=== PATIENT | male | born 1995 | race Caucasian/White ===

== ENCOUNTER 2020-12-17 14:19 | Observation (INO) | payer OTHER, SELFPAY ==
[2020-12-17] VITALS (13 sets, daily range): BP systolic 129–149; BP diastolic 61–91; PULSE 63–109; RESP 16–20; TEMP 36.4–37.7; O2SAT 93–99; BMI 30.1
[2020-12-17 14:42] LABS: Absolute Lymphocyte Count 0.78 X10^3/uL (0.83-4.51); Absolute Neutrophil Count 10.8 X10^3/uL (2.0-7.7); Basophil# 0.02 X10^3/uL; Basophil% 0.2 % (0-1); Hematocrit 50.1 % (40-54); Hemoglobin 17.6 g/dL (13.0-16.5); Lymphocyte # 0.78 X10^3/ul (0.83-4.51); Lymphocyte % 6.3 % (19-41); Mean Corp Hgb Conc 35.1 g/dL (32-36); Mean Corpuscular Hgb 28.1 pg (27.0-32.0); Mean Platelet Vol. 10.6 fl (6.2-12.0); Monocyte# 0.83 X10^3/uL; Monocyte% 6.7 % (0-10); NRBC Flagged by Analyzer 0 % (0-5); Neutrophil # 10.79 X10^3/uL (2.7-7.7); Neutrophil % 86.5 % (47-70); Platelet Count 156 K/mm3 (150-450); RBC Distribution Width CV 12.1 % (11.6-14.6); RBC Distribution Width SD 34.8 fl (35.1-43.9); Red Blood Count 6.26 M/mm3 (4.6-6.2); White Blood Count 12.5 K/mm3 (4.4-11.0)
--- NOTE | 2020-12-17 15:06 | ED.VIS.GI ---
HPI HPI - GI History of Present Illness Chief Complaint: Abd Pain Narrative Narrative: 25-year-old male with no previous medical history or surgeries presenting with right lower quadrant pain, nausea, vomiting. Patient states he felt some discomfort around his umbilicus last evening and now he has pain in the right lower quadrant and to some degree in the left upper quadrant. He denies fever. He denies any trauma. No black or bloody stool. No hematuria. PFSH PFSH Home Medications NK 12/17/20 [History Last Taken Unknown] Allergy/AdvReac Type Severity Reaction Status Date / Time No Known Allergies Allergy Verified 12/17/20 14:20 Social History Smoking Status: Never smoker ROS ROS ED Constitutional Constitutional ED: Denies chills, fever(s) or sweats Eyes Eyes: Denies blurry vision or change in vision ENT ENT ED: Denies ear pain, rhinorrhea or sore throat Cardiovascular Cardiovascular: Denies chest pain, palpitations or racing heartbeat Respiratory/Chest Respiratory/Chest: Denies cough, dyspnea or sputum Gastrointestinal Gastrointestinal: Reports abdominal pain and vomiting; Denies constipation or diarrhea Genitourinary Genitourinary ED: Denies dysuria, hematuria or urinary frequency Musculoskeletal Musculoskeletal: Denies arthralgias, myalgias or neck pain Integumentary Denies abscess, Abrasions or rash Neurologic Neurologic: Denies headache(s), paresthesias or weakness Psychiatric Psychiatric: Denies anxiety, depression, suicidal ideation or suicidal thoughts Endocrine Endocrinology: Denies polydipsia or polyuria EXAM Physical Exam Const Vital Signs: 12/17/20 14:21 12/17/20 14:22 12/17/20 16:28 Temperature 97.5 F L 97.5 F L 98.2 F Temperature Source Temporal Temporal Oral Pulse Rate 109 H 109 H 58 L Respiratory Rate 16 16 16 Blood Pressure 149/79 H 149/79 H 141/82 H Blood Pressure Mean 102 102 101 Pulse Ox 99 99 99 Oxygen Delivery Method Room Air Room Air Room Air General Appearance ED: Negative for pallor HEENT Reports normocephalic, head/scalp atraumatic and moist mucous membranes Eyes PERRL and EOMs intact bilaterally Neck no lymphadenopathy and supple Chest Wall inspection of chest normal and palpation of chest normal Resp normal respiratory effort and clear to auscultation bilaterally Auscultation: Negative for rales, rhonchi or wheezes Cardio regular rate and regular rhythm GI normal to inspection, nondistended, normoactive bowel sounds and non-distended GI Narrative: Tenderness to palpation in the right lower quadrant. Positive McBurney point tenderness. Auscultation: normoactive bowel sounds Palpation: soft Narrative: Deferred Back/Spine no CVA tenderness General Back: Negative for CVA tenderness Cervical Spine: Negative for cervical spine tenderness Extremity normal to inspection General Extremety ED: Yes edema and tenderness General Extremity: edema Neuro oriented x3 and CN's II-XII intact bilaterally Sensorium / Orientation: alert Motor Exam: strength 5/5 throughout Psych mental status grossly normal Attitude: No agitated Skin no rashes or lesions noted and no wounds General Skin Exam: Negative for jaundice or pallor MDM MDM MDM Narrative Medical decision making narrative: Patient presenting with right lower quadrant pain. On exam he does have tenderness over McBurney's point. Patient given morphine and Zofran as well as IV fluids. He did have some improvement in pain but his pain did return on repeat exam and he had a second dose of morphine and Zofran. On patient's lab work he does have a leukocytosis of 12.5 as well as a left shift. Renal function electrolytes are normal. CT the abdomen pelvis with IV contrast shows an appendicolith and acute appendicitis. Patient was discussed with Dr. Gaines who will take the patient to the OR. He states that he is already ordered Zosyn for the patient. Patient medically stable on transfer. Lab Data Attestation: I reviewed the patient's lab results. Labs: Laboratory Results - last 24 hr 12/17/20 12/17/20 14:36 14:36 WBC 12.5 H RBC 6.26 H Hgb 17.6 H Hct 50.1 MCV 80.0 MCH 28.1 MCHC 35.1 RDW Std Deviation 34.8 L RDW Coeff of Jory 12.1 Plt Count 156 MPV 10.6 Immature Gran % (Auto) 0.300 Neut % (Auto) 86.5 H Lymph % (Auto) 6.3 L [place] % (Auto) 6.7 Eos % (Auto) 0.0 Baso % (Auto) 0.2 Absolute Neuts (auto) 10.8 H Absolute Lymphs (auto) 0.78 L Nucleated RBC % 0 Sodium 135 L Potassium 4.4 Chloride 103 Carbon Dioxide 26.0 Anion Gap 6 BUN 14 Creatinine 1.10 Estim Creat Clear Calc 105.08 Est GFR (MDRD) Af Amer 104 Est GFR (MDRD) Non-Af 86 BUN/Creatinine Ratio 12.7 Glucose 111 H Calcium 9.6 Radiography Diagnostic Testing: Radiology Impression Abdomen/Pelvis CT 12/17/20 15:07 IMPRESSION: Findings in keeping with acute appendicitis. An appendicolith is seen within the appendiceal lumen. Electronically Signed: Eliel Campbell MD at 15:43 EDT , Service support , Discharge Plan Triage Chief Complaint: Abd Pain ED Provider: Omi Gupta Dx/Rx/DC Orders Prescriptions: No Action NK RF: 0 Primary Care Provider: Care Physician,No Primary
--- NOTE | 2020-12-17 15:07 | CT_ITS ---
STUDY: CT ABDOMEN AND PELVIS WITH CONTRAST REASON FOR EXAM: Male, 25 years old. Right lower quandrantics pain. Vomiting. RADIATION DOSAGE (If Supplied By Facility): CTDIvol = ( 13.19 ) mGy, DLP = ( 925.59 ) mGycm TECHNIQUE: Transaxial images were obtained from the dome of the diaphragm to the symphysis pubis without oral contrast. IV 100mL Isovue-300 was administered. Sagittal and coronal images were reconstructed. Individualized dose optimization techniques were used for this CT. COMPARISON: None. FINDINGS: The visualized lung bases are unremarkable. The visualized portions of the heart are within normal limits. Normal liver. Normal gallbladder and extrahepatic biliary system. Normal spleen. Normal pancreas. Normal bilateral adrenal glands. Normal right kidney. Normal left kidney. There is a small hiatal hernia. Normal small intestine. Normal colon. There is a tubular, thick-walled appendix (>7mm), consistent with acute appendicitis. Appendicolith is seen in the appendiceal lumen. Normal abdominal aorta. Normal inferior vena cava. Normal retroperitoneum. Normal urinary bladder. Normal abdominal wall. Normal osseous structures. CT/Abdomen/Pelvis W IV Cont ONLY IMPRESSION: Findings in keeping with acute appendicitis. An appendicolith is seen within the appendiceal lumen. Electronically Signed: Eliel Campbell MD at 15:43 EDT , Service support ,
[2020-12-17] MEDS: Morphine 4 MG/ML Syringe IV ×2 (15:23→16:27)
[2020-12-17] MEDS: Ondansetron 4 MG/2 ML Vial IV ×2 (15:23→16:27)
[2020-12-17] MEDS: 0.9% Normal Saline 1,000 ML 1000 ML IV (15:25)
[2020-12-17 16:22] LABS: Bacteria 0 SEEN /hpf (None Seen); Mucous, Urine 0 SEEN /hpf (<or=2+); Squamous Epithelial Cells - UA 0 SEEN /hpf (0-5); White Blood Cells 0 SEEN /hpf (0-5)
[2020-12-17 16:33] LABS: Color, Urine Yellow (Yellow); Glucose, Dipstick Normal (Normal); Ketone-Dipstick 5 mg/dl (Negative); Leukocyte Esterase-Dipstick Negative /ul (Negative); Nitrite-Dipstick Negative (Negative); Occult Blood-Urine Negative /ul (Negative); Protein-Dipstick Negative (Negative); Specific Gravity, Urine 1.005 (1.002-1.030); Urine Bilirubin Dipstick Negative (Negative); Urine Clarity Clear (Clear); Urine Urobilinogen Normal (Normal)
[2020-12-17] MEDS: 0.9% Normal Saline 1,000 ML 100 ML IV (16:55)
--- NOTE | 2020-12-17 16:59 | HP.PCM_ITS ---
HPI - General HPI Narrative SARAH BELLE, is a 25 M who presents to the emergency room with a 24-hour history of abdominal pain low abdomen. He had severe pain this morning. Nausea and vomiting this morning. He presented to the emergency room approximately 230 because of failure to resolve. His white blood cell count is 12.6 with a hemoglobin elevated to 17.6 and hematocrit 50.1 and a platelet count 156,000. 86% neutrophils. Both he and his state that they think they had COVID-19 approximate MayJune 2020. They had fever aches loss of's taste. They did not seek testing. They have not had the COVID-19 vaccine. He does excavation work. He claims he has no residual lasting fatigue or pulmonary effect. His CT scan was done through the emergency room. A thick-walled appendix with an appendicolith is identified. [place] to be consistent with acute appendicitis. I have personally reviewed those images and certainly there is periappendiceal inflammation and a quite distended appendix. [facility] Home Medications NK 12/17/20 [History Last Taken Unknown] Allergy/AdvReac Type Severity Reaction Status Date / Time No Known Allergies Allergy Verified 12/17/20 14:20 Social History Smoking Status: Never smoker ROS Constitutional Constitutional: Reports systems reviewed and no addt'l complaints, except as documented Cardiovascular Cardiovascular: Reports systems reviewed and no addt'l complaints, except as documented Gastrointestinal Gastrointestinal: Reports abdominal pain, belching, nausea and vomiting Genitourinary Genitourinary: Reports systems reviewed and no addt'l complaints, except as documented Musculoskeletal Musculoskeletal: Reports systems reviewed and no addt'l complaints, except as documented Vital Signs Vital Signs Vital Signs: 12/17/20 14:21 12/17/20 14:22 12/17/20 16:28 Temperature 97.5 F L 97.5 F L 98.2 F Temperature Source Temporal Temporal Oral Pulse Rate 109 H 109 H 100 Respiratory Rate 16 16 16 Blood Pressure 149/79 H 149/79 H 141/82 H Blood Pressure Mean 102 102 101 Pulse Ox 99 99 99 Oxygen Delivery Method Room Air Room Air Room Air Physical Exam Const alert, oriented x3 and no apparent distress HEENT normocephalic Eyes General Eye: normal appearance of both eyes Chest inspection of chest normal Resp normal respiratory effort Cardio Rate: regular rate Rhythm: regular rhythm GI GI Narrative: Somewhat soft, bowel sounds absent, marked tenderness to palpation right lower quadrant with guarding, no mass, Extremity no calf tenderness Skin no rashes or lesions noted Neuro oriented x3 Psych Thought Process: normal thought process Lab / Micro Data Result Diagrams: 12/17/20 14:36 12/17/20 14:36 Labs: Laboratory Results - last 24 hr 12/17/20 12/17/20 14:36 14:36 WBC 12.5 H RBC 6.26 H Hgb 17.6 H Hct 50.1 MCV 80.0 MCH 28.1 MCHC 35.1 RDW Std Deviation 34.8 L RDW Coeff of Jory 12.1 Plt Count 156 MPV 10.6 Immature Gran % (Auto) 0.300 Neut % (Auto) 86.5 H Lymph % (Auto) 6.3 L [place] % (Auto) 6.7 Eos % (Auto) 0.0 Baso % (Auto) 0.2 Absolute Neuts (auto) 10.8 H Absolute Lymphs (auto) 0.78 L Nucleated RBC % 0 Sodium 135 L Potassium 4.4 Chloride 103 Carbon Dioxide 26.0 Anion Gap 6 BUN 14 Creatinine 1.10 Estim Creat Clear Calc 105.08 Est GFR (MDRD) Af Amer 104 Est GFR (MDRD) Non-Af 86 BUN/Creatinine Ratio 12.7 Glucose 111 H Calcium 9.6 Radiology Impression Abdomen/Pelvis CT 12/17/20 15:07 IMPRESSION: Findings in keeping with acute appendicitis. An appendicolith is seen within the appendiceal lumen. Electronically Signed: Eliel Campbell MD at 15:43 EDT , Service support , Assessment & Plan Assessment/Plan (1) Acute appendicitis: QUALIFIERS: Acute appendicitis type: unspecified acute appendicitis type Qualified Code(s): K35.80 - Unspecified acute appendicitis PLAN: I recommended the patient a laparoscopic appendectomy with conversion to an open approach if indicated. Because of the appendicolith I believe that conservative measures would not be appropriate. The patient has seemingly had COVID-19 but that appears to be greater than 4 months ago. I have discussed this potential increased risk factor with him. I have discussed the benefit, risk, technique and alternatives. He elects to proceed with definitive surgical management. We will initiate him on IV Zosyn. We will proceed with definitive operative treatment as soon as the OR staff returns. Geovanni Lazo M.D., F.A.C.S.
--- NOTE | 2020-12-17 17:00 | APP_PTH ---
PATIENT: SARAH BELLE LOC: [facility]3 U#:[id number] AGE/SX: 25/M ROOM: [facility]313 RE12/17/[address]: Dr. Geovanni Lazo MD : 1995 BED: 1 DIS: 12/18/2020 SPEC #: [id number] RECD: 12/18/20 08:39 STATUS: ZOEY TORRES #: [id number] ANDIE: 12/17/20 17:[address]: Geovanni Lazo DEPT: SURGICAL PATHOLOGY RECD BY: Noy Nicholas ENTERED: 12/18/20 09:53 SP TYPE: APPENDIX OT DR: No Primary Care Phys Tissues: Appendix, NOS Procedures: Surgery Specimen Level III HEADER OPERATION: Laparoscopic appendectomy PRE-OP DIAGNOSIS: Acute appendicitis TISSUE SUBMITTED: Appendix MICROSCOPIC DIAGNOSIS Appendix, appendectomy: Acute appendicitis and periappendicitis. JANELLE:altagracia 12/21/2020 MICROSCOPIC DESCRIPTION Slides are reviewed. GROSS DESCRIPTION Received in fixative is one container labeled with the patient's name and designated appendix. The specimen consists of a J-shaped appendix measuring 10 cm in length and up to 1.3 cm in diameter. The attached periappendiceal adipose tissue measures up to 2.5 cm in greatest width. The serosal surface is congested and covered focally with almazan, purulent exudate. The lumen is filled with hemorrhagic, purulent fluid. A small amount of fecal material is noted. [employer] sections are submitted in two cassettes. / JANELLE:altagracia 12/18/20 TC:2 CPT: 94634
--- NOTE | 2020-12-17 17:06 | PCM.DC ---
Discharge Instructions Diet Discharge Diet: Light diet - advance as tolerated (if you have questions about your diet instructions, please talk to you doctor.) Activity Discharge Activity: May Not Drive (for 3-5 days or while taking narcotic pain medicine.) May shower in (days): 1 Lifting Restrictions: 10 pounds Dressing / Incision Call your doctor if your incision/area has: Continuous Slow Oozing, Sudden Increased Bleeding, Increased Pain/ Swelling, Increased Redness and Foul Smelling Discharge Call your doctor if you observe: Fever of 101 or Higher Suture Line Care: Avoid Pulling/Pushing and Avoid Pinching/Bending Additional Dressing/Incision Instructions:: Change or remove dressing in 4 days. Leave steri-strips in place for 1 week. Follow Up Care Please Follow Up With: Geovanni Lazo MD When: Call [phone] to make an appointment to be seen in about 10 days with VY Currie Test Results: Test results from this visit will be discussed in further detail at your follow-up appointment, if applicable. Discharge Plan Admission Attending Provider: Geovanni Lazo Primary Care Provider: Care Physician,No Primary Discharge Orders/Prescriptions Prescriptions: No Action NK RF: 0 Referrals / Follow Up: Geovanni Lazo MD [STAFF PHYSICIAN] - Care Physician,No Primary [Primary Care Provider] - Disposition Disposition (needs filled in before D/C Order can be placed): Home, self care
[2020-12-17 17:22] LABS: Red Blood Cells-Urine 0-5 SEEN /hpf (0-5)
[2020-12-17 17:39] LABS: ALB/GLOB Ratio 1.4 RATIO (0.9-2.4); Albumin, Serum 4.9 g/dL (3.2-5.0); BUN 14 mg/dL (7-18); BUN/Creat Ratio 12.7 RATIO (10-20); Calcium,Total 9.6 mg/dL (8.5-10.1); EST Glomerular Filtration Rate 86 mL/min (>60); Est Glom Filt Rate - Afr Amer 104 mL/min (>60); Estimated Creatinine Clearance 105.08 ml/min; Globulin 3.5 g/dL (2.2-4.2); Glucose 111 mg/dL (74-106); Lipase 72 U/L (73-393); Protein, Total 8.4 g/dL (6.4-8.2)
[2020-12-17 17:40] LABS: Alanine Aminotransfer ALT/SGPT 58 U/L (16-61); Alkaline Phosphatase 79 U/L (45-117); Anion Gap 6 (5-15); Chloride 103 mmol/L (98-107); Potassium 4.4 mmol/L (3.5-5.1); Sodium Level 135 mmol/L (136-145)
[2020-12-17] MEDS: Lactated Ringers 1,000 ML 70 ML IV (19:00)
[2020-12-17] MEDS: Bupivacaine Mpf 0.5% 30 ML VIAL (19:02)
--- NOTE | 2020-12-17 19:11 | PCM.OPRPT ---
Problems Associated Problem List Diagnoses (1) Acute appendicitis: Report of Operation Date of Procedure: 12/17/20 Pre-Operative Diagnosis: Acute appendicitisWith appendicolith Post-Operative Diagnosis: Same Surgery/Procedure Performed:: Laparoscopic appendectomy Description of Surgical Findings:: Timeout and informed consent was obtained. 25-year-old gentleman was taken to the operative room placed upon the table underwent general tracheal inpatient esthesia. He received 3.375 g of Zosyn through the emergency room. The abdomen sterilely prepped and draped. 0.5% Marcaine was used as a local anesthetic. Throughout the procedure total of 30 cc was used. Skin sites were preanesthetized. An infraumbilical incision was created holding sutures of 0 Vicryl placed varies needle inserted saline drop test performed the abdomen was insufflated with CO2 to a pressure of 10 mmHg pressure 10 mm trocar was inserted 10 laparoscopic surgery no evidence of any trocar injuries 5 mm ports were placed in the suprapubic and lower mid abdomen the appendix was noted to be grossly distended. However there appeared to be retroperitoneal peritoneum overlapping the appendix and the small bowel mesentery was overlapping appendix. Careful tedious dissection was required with hemoclips used for hemostasis to completely separate and dissect this free. The origin of the appendix actually was somewhat retrocecal. This was finally dissected free. A 45 mm stapler was used to transect the appendix flush with the cecal base. It was apparent that a hemolock clip had become involved in the staple line so we will repeat stapling of that resection was performed taking a small amount of cecum. The staple line was free and clear. The appendix and fragments were placed within retrieval bags. The right upper quadrant was irrigated and aspirated free of excess fluid. The staple line carefully inspected and noted to be intact and hemostatic. Fibrillar was placed to further assist with hemostasis. The abdomen was aspirated free. There was minimal cloudy fluid at the initiation of the procedure and this was easily aspirated. The abdomen was allowed to deflate through an antiviral valve. The specimens had been removed through the umbilical port site. Slight fascial enlargement was required due to the size of the appendix. The fascia then umbilicus approximated with interrupted 0 Vicryl [id number] suture. Skin edges approximated with 4 Monocryl subdermal stitches. Steri-Strips Telfa OpSite dressings applied. Sponge and instrument and needle counts were reported the surgeon to be correct. Specimen appendix and small additional fragment of staple line and cecum. Drains none. Blood loss minimal. Geovanni Lazo M.D., F.A.C.S. Type of Anesthesia: General Anesthesiologist: Sindhu Underwood
[2020-12-17] MEDS: Morphine 2 MG/ML Syringe IV (20:55)
[2020-12-17] MEDS: Acetaminophen 325 MG Tablet 650 MG PO (23:54)
[2020-12-18] VITALS (7 sets, daily range): BP systolic 111–141; BP diastolic 69–84; PULSE 98–105; RESP 16–18; TEMP 36.8–37.3; O2SAT 95–100
--- NOTE | 2020-12-18 00:30 | NURSING ---
2350 pt asked to get up to walk in the halls. Pt sat at the edge of the bed and reported feeling light headed. Pt sat at the edge of the bed for several minutes and stated he still felt light headed. Pt stated he was ready to lay back down.
--- NOTE | 2020-12-18 03:43 | NURSING ---
pt walked a half lap in the dimas. tolerated well.
--- NOTE | 2020-12-18 05:19 | NURSING ---
pt walked a full lap in the dimas. tolerated well. returned to bed.
--- NOTE | 2020-12-18 05:42 | PN.SURG_ITS ---
Subjective Subjective: Patient quite tender at rest and particularly with movement. Minimal flatus. No nausea. Objective Data Objective Data Vital Signs: Vital Signs Temp Pulse Resp BP Pulse Ox 99.2 F H 99 18 141/84 H 96 12/18/20 05:07 12/18/20 00:39 12/18/20 00:39 12/18/20 00:39 12/18/20 00:39 Oxygen Delivery Method Room Air Weight: 210 lb Body Mass Index (BMI) 30.1 Intake & Output: Intake and Output for Last 24 Hours 12/16/20 12/17/20 12/18/20 23:59 23:59 23:59 Intake Total 2350 / 2350 Output Total 800 / 800 Balance 1550 / 1550 Lab / Micro Data Result Diagrams: 12/17/20 14:36 12/17/20 14:36 Labs: Laboratory Results - last 24 hr 12/17/20 12/17/20 12/17/20 14:36 14:36 14:36 WBC 12.5 H RBC 6.26 H Hgb 17.6 H Hct 50.1 MCV 80.0 MCH 28.1 MCHC 35.1 RDW Std Deviation 34.8 L RDW Coeff of Jory 12.1 Plt Count 156 MPV 10.6 Immature Gran % (Auto) 0.300 Neut % (Auto) 86.5 H Lymph % (Auto) 6.3 L [place] % (Auto) 6.7 Eos % (Auto) 0.0 Baso % (Auto) 0.2 Absolute Neuts (auto) 10.8 H Absolute Lymphs (auto) 0.78 L Nucleated RBC % 0 Sodium Cancelled 135 L Potassium Cancelled 4.4 Chloride Cancelled 103 Carbon Dioxide Cancelled 26.0 Anion Gap Cancelled 6 BUN Cancelled 14 Creatinine Cancelled 1.10 Estim Creat Clear Calc Cancelled 105.08 Est GFR (MDRD) Af Amer Cancelled 104 Est GFR (MDRD) Non-Af Cancelled 86 BUN/Creatinine Ratio Cancelled 12.7 Glucose Cancelled 111 H Calcium Cancelled 9.6 Total Bilirubin 1.30 H AST 41 H ALT 58 Alkaline Phosphatase 79 Total Protein 8.4 H Albumin 4.9 Globulin 3.5 Albumin/Globulin Ratio 1.4 Lipase 72 L Urine Color Urine Clarity Urine pH Ur Specific [place] Urine Protein Urine Glucose (UA) Urine Ketones Urine Occult Blood Urine Nitrite Urine Bilirubin Urine Urobilinogen Ur Leukocyte Esterase Urine RBC Urine WBC Ur Squamous Epith Cells Urine Bacteria Urine Mucus 12/17/20 16:15 WBC RBC Hgb Hct MCV MCH MCHC RDW Std Deviation RDW Coeff of Jory Plt Count MPV Immature Gran % (Auto) Neut % (Auto) Lymph % (Auto) [place] % (Auto) Eos % (Auto) Baso % (Auto) Absolute Neuts (auto) Absolute Lymphs (auto) Nucleated RBC % Sodium Potassium Chloride Carbon Dioxide Anion Gap BUN Creatinine Estim Creat Clear Calc Est GFR (MDRD) Af Amer Est GFR (MDRD) Non-Af BUN/Creatinine Ratio Glucose Calcium Total Bilirubin AST ALT Alkaline Phosphatase Total Protein Albumin Globulin Albumin/Globulin Ratio Lipase Urine Color Yellow Urine Clarity Clear Urine pH 7.0 Ur Specific [place] 1.005 Urine Protein Negative Urine Glucose (UA) Normal Urine Ketones 5 H Urine Occult Blood Negative Urine Nitrite Negative Urine Bilirubin Negative Urine Urobilinogen Normal Ur Leukocyte Esterase Negative Urine RBC 0-5 SEEN Urine WBC 0 SEEN Ur Squamous Epith Cells 0 SEEN Urine Bacteria 0 SEEN Urine Mucus 0 SEEN Micro: Microbiology 12/17/20 16:10 Nasal Secretion SARS-CoV-2 Antigen (Rapid) - Final Radiography Diagnostic Testing: Radiology Impression Abdomen/Pelvis CT 12/17/20 15:07 IMPRESSION: Findings in keeping with acute appendicitis. An appendicolith is seen within the appendiceal lumen. Electronically Signed: Eliel Campbell MD at 15:43 EDT , Service support , Physical Exam GI GI Narrative: Distended consistent with his preoperative ileus. Wound is clean. Assessment & Plan Assessment/Plan (1) Acute appendicitis: QUALIFIERS: Acute appendicitis type: unspecified acute appendicitis type Qualified Code(s): K35.80 - Unspecified acute appendicitis PLAN: I have encouraged patient mobilization. We will reassess progress report midday. Continue on clear liquids. We will treat with nonsteroidal anti-inflammatory agent for the shoulder tip pain. Geovanni Lazo M.D., F.A.C.S.
[2020-12-18] MEDS: Ketorolac 30 MG/ML Syringe IV (06:20)
[2020-12-18] MEDS: 0.9% Saline Lock 10 ML Syringe IV (06:20)
[2020-12-18 06:50] LABS: Absolute Lymphocyte Count 0.68 X10^3/uL (0.83-4.51); Absolute Neutrophil Count 9.1 X10^3/uL (2.0-7.7); Basophil# 0.01 X10^3/uL; Basophil% 0.1 % (0-1); Hematocrit 40.9 % (40-54); Hemoglobin 14.3 g/dL (13.0-16.5); Lymphocyte # 0.68 X10^3/ul (0.83-4.51); Lymphocyte % 6.2 % (19-41); Mean Corpuscular Hgb 28.4 pg (27.0-32.0); Mean Corpuscular Volume 81.2 fL (80-94); Mean Platelet Vol. 11.2 fl (6.2-12.0); Monocyte# 1.19 X10^3/uL; Monocyte% 10.8 % (0-10); NRBC Flagged by Analyzer 0 % (0-5); Neutrophil % 82.4 % (47-70); Platelet Count 151 K/mm3 (150-450); RBC Distribution Width CV 12.5 % (11.6-14.6); RBC Distribution Width SD 36.7 fl (35.1-43.9); Red Blood Count 5.04 M/mm3 (4.6-6.2)
[2020-12-18] MEDS: Acetaminophen 325 MG Tablet 650 MG PO ×2 (12:04→17:44)
[2020-12-18] MEDS: Lactated Ringers 1,000 ML 70 ML IV (12:19)
[2020-12-24 15:55] LABS: AST(SGOT) 41 U/L (15-37)
== END 2020-12-18 18:15 | disposition home or self-care (01) ==
LOC: ED 16:08 → SDC 16:51 → AC 16:56 → MS3 19:19 → SDC 12-18 10:10
PROVIDERS: Admitting Provider Surgery; Emergency Provider Student in an Organized Health Care Education/Training Program; Visit Provider Surgery
PROC: 0DTJ4ZZ Resection of Appendix, Percutaneous Endoscopic Approach (ICD-10-PCS; CPT 44970; principal; 2020-12-17 17:00)
DX: K35.80 Unspecified acute appendicitis (principal); K38.1 Appendicular concretions
CPT/HCPCS: 44970; 36415; 74177; 80048; 80053; 81001; 83690; 85025; 87426; 88304; 96374; 96375; 96376; 99218; 99285; J7030; J7120; Q9967; A4216; G0378; J2405